=== PATIENT | female | born 1935 | race Hispanic/Latino ===

== ENCOUNTER 2020-08-21 15:59 | Emergency (ER) | payer MEDICARE, OTHER ==
[~2020-08-21] VITALS: Ht 152.4 cm; Wt 54.4 kg
== END 2020-08-21 17:33 | disposition home or self-care (01) ==
LOC: ER 17:18
DX: Z47.89 Encounter for other orthopedic aftercare (principal); I10 Essential (primary) hypertension
CPT/HCPCS: 99281